=== PATIENT | male | born 1980 | race African-American/Black ===

== ENCOUNTER 2020-04-21 13:46 | Emergency (ER) | payer OTHER ==
[~2020-04-21] VITALS: Ht 167.6 cm; Wt 63.0 kg
[2020-04-21] MEDS ORDERED: AMOXICILLIN500 MG PO (15:30)
[2020-04-21 15:52] VITALS: BP 141/101
--- NOTE | 2020-04-23 08:57 | NUR ---
Notified [facility] [id number] ext 4 medical, Felisa of positive Covid results. Felisa requested I fax results to [phone]. Results faxed.
== END 2020-04-21 15:51 | DRG 604 ==
LOC: ED 13:46
PROC: 0HQ6XZZ Repair Back Skin, External Approach (ICD-10-PCS; principal; 2020-04-21)
PROC: 0HQ1XZZ Repair Face Skin, External Approach (ICD-10-PCS; 2020-04-21)
PROC: 0HQBXZZ Repair Right Upper Arm Skin, External Approach (ICD-10-PCS; 2020-04-21)
DX: S21.211A Laceration without foreign body of right back wall of thorax without penetration into thoracic cavity, initial encounter (principal); U07.1 COVID-19; S41.011A Laceration without foreign body of right shoulder, initial encounter; S01.112A Laceration without foreign body of left eyelid and periocular area, initial encounter; S01.81XA Laceration without foreign body of other part of head, initial encounter; S01.511A Laceration without foreign body of lip, initial encounter; X99.1XXA Assault by knife, initial encounter; Y92.149 Unspecified place in prison as the place of occurrence of the external cause; I10 Essential (primary) hypertension